=== PATIENT | male | born 1940 | race Caucasian/White ===

== ENCOUNTER 2019-09-19 09:07 | Inpatient (IN) | payer OTHER ==
[~2019-09-19] VITALS: Ht 170.2 cm; Wt 64.0 kg
[2019-09-19] MEDS ORDERED: ENTRESTO 49 MG1 EACH PO (10:05)
[2019-09-19] MEDS ORDERED: SPIRINOLACTONE PO (10:06)
[2019-09-19] MEDS ORDERED: METOPROLOL ER-1 EAC1 PO (10:06)
[2019-09-19] MEDS ORDERED: ATORVASTATIN CA40 MG PO (10:07)
[2019-09-19] MEDS ORDERED: ADULT LOW DOSE81 M1 PO (10:07)
[2019-09-19] MEDS ORDERED: CLONAZEPAM0.5 MG PO (10:07)
[2019-09-19] MEDS ORDERED: FUROSEMIDE20 MG PO (10:07)
[2019-09-19] MEDS ORDERED: PLAVIX75 MG PO (10:07)
[2019-09-19] MEDS ORDERED: NEUPRO1 EAC1 TD (10:08)
[2019-09-19] MEDS ORDERED: LEVODOPA25 GM (10:09)
[2019-09-19] MEDS ORDERED: LEVODOPA (10:10)
[2019-09-21] MEDS ORDERED: SPIRONOLACTONE25 MG (09:26)
[2019-09-21] MEDS ORDERED: CARBIDOPA-LEVO1 EAC4 (09:26)
[2019-09-21] MEDS ORDERED: ESCITALOPRAM OX20 MG PO (09:26)
[2019-09-21] MEDS ORDERED: CARBIDOPA-LEVO1 EA12 (09:27)
== END 2019-09-26 12:51 | disposition home or self-care (01) | DRG 394 ==
LOC: ER 09:07 → SURH 16:37
PROVIDERS: ADMIT Specialist
PROC: BW21Y0Z Computerized Tomography (CT Scan) of Abdomen and Pelvis using Other Contrast, Unenhanced and Enhanced (ICD-10-PCS; principal; 2019-09-19)
PROC: 0DP68UZ Removal of Feeding Device from Stomach, Via Natural or Artificial Opening Endoscopic (ICD-10-PCS; 2019-09-25)
DX: K94.23 Gastrostomy malfunction (principal); J98.11 Atelectasis; K66.8 Other specified disorders of peritoneum; G20 Parkinson's disease; I11.9 Hypertensive heart disease without heart failure; I25.10 Atherosclerotic heart disease of native coronary artery without angina pectoris; Z95.5 Presence of coronary angioplasty implant and graft; Y83.8 Other surgical procedures as the cause of abnormal reaction of the patient, or of later complication, without mention of misadventure at the time of the procedure

== ENCOUNTER 2019-09-23 23:25 | Inpatient (IN) | payer OTHER ==
[~2019-09-23] VITALS: Ht 175.3 cm; Wt 63.5 kg
[~2019-09-23 23:25] MED LIST: ADULT LOW DOSE81 M1 PO; ATORVASTATIN CA40 MG PO; CARBIDOPA-LEVO1 EA12; CARBIDOPA-LEVO1 EAC4; CLONAZEPAM0.5 MG PO; ENTRESTO 49 MG1 EACH PO; ESCITALOPRAM OX20 MG PO; FUROSEMIDE20 MG PO; LEVODOPA; LEVODOPA25 GM; METOPROLOL ER-1 EAC1 PO; NEUPRO1 EAC1 TD; PLAVIX75 MG PO; SPIRINOLACTONE PO; SPIRONOLACTONE25 MG
== END 2019-09-26 12:51 | disposition home or self-care (01) | DRG 395 ==
LOC: ER 23:25 → MEDJ 09-24 13:31
PROVIDERS: ADMIT Specialist
PROC: 0DP68UZ Removal of Feeding Device from Stomach, Via Natural or Artificial Opening Endoscopic (ICD-10-PCS; principal; 2019-09-25)
DX: K94.29 Other complications of gastrostomy (principal); I10 Essential (primary) hypertension; G20 Parkinson's disease; Y83.8 Other surgical procedures as the cause of abnormal reaction of the patient, or of later complication, without mention of misadventure at the time of the procedure; I25.10 Atherosclerotic heart disease of native coronary artery without angina pectoris; Z95.5 Presence of coronary angioplasty implant and graft